=== PATIENT | female | born 1965 | race Hispanic/Latino ===

== ENCOUNTER 2020-11-14 13:54 | Outpatient (RCR) | payer OTHER, SELFPAY ==
[2020-11-14 14:10] VITALS: BMI 39.2
[2020-11-14 14:17] VITALS: BMI 39.2
== END 2021-02-03 10:27 | disposition home or self-care (01) ==
LOC: ANHDMC 13:54
PROVIDERS: PCP Family Medicine; Visit Provider Nurse Practitioner Family
DX: E11.9 Type 2 diabetes mellitus without complications (principal); Z71.3 Dietary counseling and surveillance
CPT/HCPCS: 97802

== ENCOUNTER 2021-03-27 09:17 | Outpatient (RCR) | payer OTHER, SELFPAY ==
[2021-03-27 09:43] VITALS: BMI 39.1
== END 2021-06-17 10:53 | disposition home or self-care (01) ==
LOC: ANHDMC 09:17
PROVIDERS: PCP Family Medicine; Visit Provider Nurse Practitioner Family
DX: E11.9 Type 2 diabetes mellitus without complications (principal); Z71.3 Dietary counseling and surveillance
CPT/HCPCS: 97802

== ENCOUNTER 2021-03-28 09:54 | Outpatient (CLI) | payer OTHER, SELFPAY ==
[2021-03-28 10:38] LABS: Alanine Aminotransferase 31 U/L (4-35); Albumin Level 4.2 g/dL (3.5-5.1); Alkaline Phosphatase 93 U/L (38-126); Aspartate Amino Transferase 52 U/L (14-36); Bilirubin Indirect 0.6 mg/dL (0-1.1); Bilirubin,Total 0.5 mg/dL (0.2-1.3)
== END 2021-03-28 09:55 | disposition home or self-care (01) ==
PROVIDERS: PCP Family Medicine; Visit Provider Internal Medicine Gastroenterology
DX: R16.0 Hepatomegaly, not elsewhere classified (principal); K76.0 Fatty (change of) liver, not elsewhere classified
CPT/HCPCS: 36415; 82040; 82247; 82248; 84075; 84450; 84460

== ENCOUNTER → 2021-10-11 02:17 | Outpatient (CLI) | payer OTHER, SELFPAY ==
[2021-10-12 15:55] LABS: SARS-CoV-2 RNA PCR Positive
== END ==
PROVIDERS: PCP Family Medicine; Visit Provider Family Medicine
DX: U07.1 COVID-19 (principal)
CPT/HCPCS: C9803; U0003; U0005